=== PATIENT | male | born 1980 | race Caucasian/White ===

== ENCOUNTER 2020-06-17 10:41 | Inpatient (IN) | payer MEDICAID, OTHER ==
[~2020-06-17] VITALS: Ht 170.2 cm; Wt 67.1 kg
[2020-06-17 12:37] LABS: BASOPHILS % (AUTO) 0.7 % (0.0-2.0); EOSINOPHILS % (AUTO) 0.5 % (1.0-6.0); HEMATOCRIT 52.8 % (41-53); HEMOGLOBIN 17.6 g/dL (13.5-17.5); LYMPHOCYTES # (AUTO) 2.6 K/uL (1.0-4.8); LYMPHOCYTES % (AUTO) 19.6 % (22.0-44.0); MEAN CORPUSCULAR HEMOGLOBIN 28.9 pg (26.0-34.0); MEAN CORPUSCULAR HGB CONC 33.3 G/dL (31.0-37.0); MEAN CORPUSCULAR VOLUME 87 fL (80-100); MONOCYTES # (AUTO) 0.5 K/uL (0.1-1.0); MONOCYTES % (AUTO) 3.5 % (2.0-9.0); NEUTROPHILS # (AUTO) 9.9 K/uL (1.8-7.7); NEUTROPHILS % (AUTO) 75.7 % (40.0-70.0); PLATELET COUNT (AUTO) 370 K/uL (150-450); RED BLOOD CELL COUNT(AUTO) 6.09 MIL/uL (4.50-5.90); RED CELL DISTRIBUTION WIDTH 13.5 % (11.5-14.5)
[2020-06-17] MEDS ORDERED: RISP1TAB27 PO (12:44)
[2020-06-17] MEDS ORDERED: LURA20TA PO (12:44)
[2020-06-17] MEDS ORDERED: RISPERIDONE PO (12:44)
[2020-06-17 12:46] LABS: ANION GAP 4 mmol/L (8-16); CARBON DIOXIDE 31 mmol/L (22-29); CHLORIDE 106 mmol/L (98-107); CREATININE 1.16 mg/dL (0.60-1.30); GLOMERULAR FILTR. RATE CALC > 60 mL/min (>60); GLUCOSE,RANDOM 99 mg/dL (70-110); POTASSIUM 5.2 mmol/L (3.5-5.1); SODIUM SERUM 141 mmol/L (136-145); UREA NITROGEN, BLOOD 15 mg/dL (7-18)
[2020-06-17 12:52] LABS: ALANINE AMINOTRANSFERASE 21 U/L (12-78); ALBUMIN 4.2 g/dL (3.4-5.0); ALKALINE PHOSPHATASE 113 U/L (46-116); ASPARTATE AMINOTRANSFERASE 11 U/L (15-37); BILIRUBIN,TOTAL 0.5 mg/dL (0.1-1.0); TOTAL PROTEIN, SERUM 7.6 g/dL (6.4-8.2)
[2020-06-17 13:36] LABS: AMPHET/METH SCREEN,URINE POSITIVE (NEGATIVE); BARBITURATE SCREEN, URINE NEGATIVE (NEGATIVE); BENZODIAZEPINES SCREEN,URINE NEGATIVE (NEGATIVE); CANNABINOID SCREEN,URINE NEGATIVE (NEGATIVE); COCAINE SCREEN,URINE NEGATIVE (NEGATIVE); METHADONE SCREEN, URINE NEGATIVE (NEGATIVE); OPIATE SCREEN,URINE NEGATIVE (NEGATIVE)
[2020-06-17 13:51] LABS: PHENCYCLIDINE SCREEN,URINE NEGATIVE (NEGATIVE)
[2020-06-17] MEDS ORDERED: NICOTINE 21 MG/24 HOUR PATCH TD ONE (14:15)
[2020-06-17] MEDS ORDERED: ZOLPIDEM TARTRATE 10 MG TABLET PO PRN (16:00)
[2020-06-17 16:22] LABS: COVID AG,FIA SOURCE NASOPHARYNGEAL
[2020-06-17] MEDS: HALOPERIDOL 5 MG TABLET PO PRN (21:29)
[2020-06-17] MEDS: LORazepam 2 MG TABLET PO PRN (21:29)
[2020-06-17 21:32] VITALS: BP 115/81
[2020-06-17] MEDS ORDERED: INFLUENZA VIRUS VACCINE QVS 2020-21 (6MO+)/PF 60 MCG/0.5 ML SYRINGE IM ONE (22:15)
[2020-06-18 06:18] VITALS: BP 115/69
[2020-06-18] MEDS ORDERED: ACETAMINOPHEN 325 MG TABLET PO PRN (08:00)
[2020-06-18] MEDS ORDERED: DOCUSATE SODIUM 100 MG CAPSULE PO PRN (08:00)
[2020-06-18] MEDS ORDERED: ALBUTEROL SULFATE HFA 90 MCG/PUFF 8 GM INHALER IH PRN (08:00)
[2020-06-18] MEDS ORDERED: MAG HYDROX/AL HYDROX/SIMETH ES 30 ML SUSPENSION UDCUP PO PRN (08:00)
[2020-06-18] MEDS ORDERED: BACITRACIN 28 GM OINTMENT TP PRN (08:00)
[2020-06-18] MEDS ORDERED: PETROLATUM,WHITE 28 GM JELLY TP PRN (08:00)
[2020-06-18] MEDS ORDERED: ONDANSETRON HCL 4 MG TABLET PO PRN (08:00)
[2020-06-18] MEDS ORDERED: MAGNESIUM HYDROXIDE SUSPENSION 30 ML UDCUP PO PRN (08:00)
[2020-06-18] MEDS ORDERED: BENZOCAINE/MENTHOL LOZENGE PO PRN (08:00)
[2020-06-18] MEDS ORDERED: CloNIDine HCL 0.1 MG TABLET PO PRN (08:00)
[2020-06-18] MEDS ORDERED: OMEPRAZOLE 20 MG CAPSULE PO PRN (08:00)
[2020-06-18] MEDS ORDERED: IBUPROFEN 600 MG TABLET PO PRN (08:00)
[2020-06-18] MEDS ORDERED: LOPERAMIDE HCL 2 MG CAPSULE PO PRN (08:00)
[2020-06-18 08:16] VITALS: BP 114/76
[2020-06-18] MEDS ORDERED: RisperiDONE MICROSPHERES 50 MG/2 ML SYRINGE IM ONE (09:00)
[2020-06-18 16:26] VITALS: BP 119/72
[2020-06-18] MEDS: NICOTINE 21 MG/24 HOUR PATCH TD SCH (21:35)
[2020-06-19 05:56] VITALS: BP 118/68
[2020-06-19 08:01] LABS: BASOPHILS % (AUTO) 0.5 % (0.0-2.0); EOSINOPHILS % (AUTO) 2.2 % (1.0-6.0); HEMATOCRIT 47.2 % (41-53); LYMPHOCYTES % (AUTO) 31.7 % (22.0-44.0); MEAN CORPUSCULAR HEMOGLOBIN 29.1 pg (26.0-34.0); MEAN CORPUSCULAR HGB CONC 33.8 G/dL (31.0-37.0); MEAN CORPUSCULAR VOLUME 86 fL (80-100); MONOCYTES # (AUTO) 0.5 K/uL (0.1-1.0); MONOCYTES % (AUTO) 5.8 % (2.0-9.0); NEUTROPHILS # (AUTO) 5.6 K/uL (1.8-7.7); NEUTROPHILS % (AUTO) 59.8 % (40.0-70.0); PLATELET COUNT (AUTO) 309 K/uL (150-450); RED BLOOD CELL COUNT(AUTO) 5.48 MIL/uL (4.50-5.90); RED CELL DISTRIBUTION WIDTH 13.6 % (11.5-14.5)
[2020-06-19 08:16] VITALS: BP 118/68
[2020-06-19 08:29] LABS: ALANINE AMINOTRANSFERASE 22 U/L (12-78); ALBUMIN 3.6 g/dL (3.4-5.0); ALKALINE PHOSPHATASE 86 U/L (46-116); ANION GAP 9 mmol/L (8-16); ASPARTATE AMINOTRANSFERASE 19 U/L (15-37); BILIRUBIN,TOTAL 0.4 mg/dL (0.1-1.0); CALCIUM, TOTAL 8.8 mg/dL (8.8-10.5); CARBON DIOXIDE 29 mmol/L (22-29); CHLORIDE 102 mmol/L (98-107); CREATININE 0.98 mg/dL (0.60-1.30); GLOMERULAR FILTR. RATE CALC > 60 mL/min (>60); GLUCOSE,RANDOM 92 mg/dL (70-110); POTASSIUM 4.2 mmol/L (3.5-5.1); SODIUM SERUM 140 mmol/L (136-145); THYROID STIMULATING HORMONE 1.87 uIU/mL (0.36-3.74); TOTAL PROTEIN, SERUM 6.4 g/dL (6.4-8.2); UREA NITROGEN, BLOOD 16 mg/dL (7-18)
[2020-06-19] MEDS: HALOPERIDOL 5 MG TABLET PO PRN ×2 (08:38→15:57)
[2020-06-19] MEDS: LORazepam 2 MG TABLET PO PRN ×2 (08:38→15:57)
[2020-06-19] MEDS: NICOTINE 21 MG/24 HOUR PATCH TD SCH (09:00)
[2020-06-19 16:23] VITALS: BP 126/80
[2020-06-20 04:32] VITALS: BP 120/69
[2020-06-20 08:16] VITALS: BP 116/73
[2020-06-20] MEDS: NICOTINE 21 MG/24 HOUR PATCH TD SCH (08:28)
[2020-06-20] MEDS: LORazepam 2 MG TABLET PO PRN ×3 (08:28→17:01)
[2020-06-20] MEDS: HALOPERIDOL 5 MG TABLET PO PRN ×2 (08:28→12:28)
[2020-06-20] MEDS ORDERED: RisperiDONE MICROSPHERES 50 MG/2 ML SYRINGE IM ONE (10:15)
[2020-06-20] MEDS: RisperiDONE 3 MG TABLET PO SCH ×2 (11:18→17:01)
[2020-06-20 16:16] VITALS: BP 130/84
[2020-06-21 04:41] VITALS: BP 109/69
[2020-06-21 08:22] VITALS: BP 113/68
[2020-06-21] MEDS: RisperiDONE 3 MG TABLET PO SCH (08:37)
[2020-06-21] MEDS: NICOTINE 21 MG/24 HOUR PATCH TD SCH (08:37)
[2020-06-21] MEDS ORDERED: RISP3TAB14 PO (09:05)
== END 2020-06-21 13:30 | disposition home or self-care (01) | DRG 750 ==
LOC: EMS 10:44 → B3A 15:47
PROVIDERS: ADMIT Psychiatry & Neurology Psychiatry; ATTEND Psychiatry & Neurology Psychiatry
DX: F20.0 Paranoid schizophrenia (principal); F19.10 Other psychoactive substance abuse, uncomplicated; K59.00 Constipation, unspecified; F41.9 Anxiety disorder, unspecified; G47.00 Insomnia, unspecified; E87.5 Hyperkalemia; E78.5 Hyperlipidemia, unspecified; F12.10 Cannabis abuse, uncomplicated; Z28.21 Immunization not carried out because of patient refusal; Z03.818 Encounter for observation for suspected exposure to other biological agents ruled out
CPT/HCPCS: 84443; 87426; G0480; J2794